=== PATIENT | male | born 1960 | race Hispanic/Latino ===

== ENCOUNTER 2021-02-16 11:10 | Inpatient (IN) | payer OTHER, SELFPAY ==
[~2021-02-16] VITALS: Ht 182.9 cm; Wt 89.8 kg
[2021-02-16 11:58] LABS: ABG BASE EXCESS 0.4 mmol/L (-2.0-3.0); ABG HCO3 23.1 mmol/L (21.0-28.0); ABG OXYGEN SATURATION 81.5 % (95.0-99.0); ABG PCO2 32 mmHg (35-48)
[2021-02-16 12:26] LABS: BASOPHILS % (AUTO) 0.2 % (0.0-5.0); LYMPHOCYTES % (AUTO) 6.9 % (21.0-51.0); MEAN CORPUSCULAR HEMOGLOBIN 28.5 pg (27.0-33.0); MEAN CORPUSCULAR HGB CONC 33.3 g/dL (32.0-36.0); MEAN CORPUSCULAR VOLUME 85.4 fL (79-99); MONOCYTES % (AUTO) 5.5 % (3.0-13.0); NEUTROPHILS % (AUTO) 86.1 % (40.0-77.0); PLATELET COUNT (AUTO) 170 K/uL (130-400); RED BLOOD CELL COUNT(AUTO) 5.27 MIL/uL (4.50-6.20); RED CELL DISTRIBUTION WIDTH 12.5 % (11.0-15.5); WHITE BLOOD COUNT (AUTO) 6.2 K/uL (4.8-10.8)
[2021-02-16 12:35] LABS: CARBON DIOXIDE 29 mmol/L (21-32); CHLORIDE 100 mmol/L (101-111); CREATININE 1.2 mg/dL (0.5-1.5); GLOMERULAR FILTR. RATE CALC 66 mL/min (>60); GLUCOSE,RANDOM 155 mg/dL (70-105); POTASSIUM 4.2 mmol/L (3.5-5.1); SODIUM SERUM 134 mmol/L (136-145); UREA NITROGEN, BLOOD 14 mg/dL (7-18)
[2021-02-16 12:48] LABS: ALANINE AMINOTRANSFERASE 133 U/L (12-78); ASPARTATE AMINOTRANSFERASE 99 U/L (10-37); BILIRUBIN,TOTAL 1.3 mg/dL (0.2-1.0); CREATINE KINASE, TOTAL 212 U/L (21-232); MYOGLOBIN 58 ng/mL (10-92); TOTAL PROTEIN, SERUM 7.4 g/dL (6.0-8.3); TROPONIN I < 0.04 ng/mL (0.00-0.06)
[2021-02-16 12:56] LABS: B-TYPE NATRIURETIC PEPTIDE 35 pg/mL (0-100)
[2021-02-16 13:30] VITALS: BP 133/66
[2021-02-16] MEDS ORDERED: GLUCAGON 1MG KIT 1 MG ML IM PRN (16:30)
[2021-02-16] MEDS ORDERED: LIDOCAINE HCL-MPF 1% 2ML VIAL IV PRN ×2 (16:30)
[2021-02-16] MEDS ORDERED: CEFTRIAXONE 2GM VIAL IVP ONE (16:30)
[2021-02-16] MEDS ORDERED: SOLU-MEDROL 125MG VIAL IVP ONE (16:30)
[2021-02-16] MEDS ORDERED: POTASSIUM CHLORIDE 20MEQ/100ML 100 ML IV PRN ×2 (16:30)
[2021-02-16] MEDS ORDERED: KCL 20 MEQ ERTAB PO PRN (16:30)
[2021-02-16] MEDS ORDERED: POTASSIUM CHLORIDE 10% ELIXIR 20 MEQ/15 ML UDCUP PO PRN (16:30)
[2021-02-16] MEDS ORDERED: ONDANSETRON 4MG INJ IVP PRN (16:30)
[2021-02-16] MEDS ORDERED: MAGNESIUM 2GM PREMIX 50ML 50 ML IV PRN (16:30)
[2021-02-16] MEDS ORDERED: DEXTROSE 50%-WATER 50 ML DISP.SYRIN IV PRN (16:30)
[2021-02-16] MEDS: INSULIN HUMULIN R 100 UNIT/ML 3ML SQ SCH ×2 (16:30→21:00)
[2021-02-16] MEDS ORDERED: CEFTRIAXONE 2GM VIAL ONE (18:10)
[2021-02-16] MEDS ORDERED: 0.9%NACL 50ML 50 ML IV ONE (18:11)
[2021-02-16] MEDS: SOLU-MEDROL 125MG VIAL IVP SCH (18:29)
[2021-02-16] MEDS: HEPARIN 5,000 UNIT VIAL SQ SCH (18:30)
[2021-02-16 18:31] VITALS: BP 133/71
[2021-02-16] MEDS: ACETAMINOPHEN 325 MG TAB PO PRN (18:43)
[2021-02-16] MEDS: FAMOTIDINE 20MG VIAL IV SCH (21:00)
[2021-02-16] MEDS ORDERED: PHARMACY COMMUNICATION**REMDESIVIR MISC SCH (22:00)
[2021-02-17] VITALS (7 sets, daily range): BP systolic 124–138; BP diastolic 64–86
[2021-02-17] MEDS: SOLU-MEDROL 125MG VIAL IVP SCH ×3 (01:55→16:32)
[2021-02-17] MEDS: HEPARIN 5,000 UNIT VIAL SQ SCH ×2 (05:50→16:32)
[2021-02-17 06:38] LABS: HEMATOCRIT 42.6 % (42-54); MEAN CORPUSCULAR HEMOGLOBIN 28.5 pg (27.0-33.0); MEAN CORPUSCULAR HGB CONC 33.1 g/dL (32.0-36.0); MEAN CORPUSCULAR VOLUME 86.1 fL (79-99); RED BLOOD CELL COUNT(AUTO) 4.95 MIL/uL (4.50-6.20); RED CELL DISTRIBUTION WIDTH 12.6 % (11.0-15.5); WHITE BLOOD COUNT (AUTO) 3.9 K/uL (4.8-10.8)
[2021-02-17 06:53] LABS: ALBUMIN 2.5 g/dL (3.5-5.0); BILIRUBIN,TOTAL 0.7 mg/dL (0.2-1.0); CREATININE 1.2 mg/dL (0.5-1.5); POTASSIUM 4.5 mmol/L (3.5-5.1); TOTAL PROTEIN, SERUM 6.7 g/dL (6.0-8.3)
[2021-02-17 07:28] LABS: ABG BASE EXCESS 0.9 mmol/L (-2.0-3.0); ABG HCO3 24.4 mmol/L (21.0-28.0); ABG OXYGEN SATURATION 91.1 % (95.0-99.0); ABG PCO2 36 mmHg (35-48)
[2021-02-17 07:40] LABS: CRP QUANTITATIVE 174.7 mg/L (0.00-9.0)
[2021-02-17] MEDS: FAMOTIDINE 20MG VIAL IV SCH ×2 (08:51→21:56)
[2021-02-17] MEDS: INSULIN HUMULIN R 100 UNIT/ML 3ML SQ SCH ×4 (08:51→21:56)
[2021-02-17] MEDS: [UNRECOGNIZED DRUG - REMARK] MISC SCH ×6 (18:00→23:00)
[2021-02-17] MEDS ORDERED: INSULIN GLARGINE 100 UNITS/ML 10 ML VIAL SQ SCH ×2 (21:00)
[2021-02-18] MEDS: [UNRECOGNIZED DRUG - REMARK] MISC SCH
[2021-02-18] MEDS: SOLU-MEDROL 125MG VIAL IVP SCH ×3 (01:44→16:50)
[2021-02-18] MEDS: ACETAMINOPHEN 325 MG TAB PO PRN (01:44)
[2021-02-18 04:06] VITALS: BP 132/67
[2021-02-18 05:58] LABS: HEMATOCRIT 42.1 % (42-54); MEAN CORPUSCULAR HEMOGLOBIN 28.2 pg (27.0-33.0); MEAN CORPUSCULAR HGB CONC 33.3 g/dL (32.0-36.0); MEAN CORPUSCULAR VOLUME 84.7 fL (79-99); RED BLOOD CELL COUNT(AUTO) 4.97 MIL/uL (4.50-6.20); RED CELL DISTRIBUTION WIDTH 12.3 % (11.0-15.5); WHITE BLOOD COUNT (AUTO) 8.6 K/uL (4.8-10.8)
[2021-02-18] MEDS: HEPARIN 5,000 UNIT VIAL SQ SCH ×2 (06:09→16:50)
[2021-02-18 06:14] LABS: ALBUMIN 2.6 g/dL (3.5-5.0); BILIRUBIN,TOTAL 0.7 mg/dL (0.2-1.0); CREATININE 1.5 mg/dL (0.5-1.5); CRP QUANTITATIVE 62.9 mg/L (0.00-9.0); POTASSIUM 4.5 mmol/L (3.5-5.1); TOTAL PROTEIN, SERUM 6.8 g/dL (6.0-8.3)
[2021-02-18] MEDS ORDERED: REMDESIVIR (EUA) 520 200 MG in 0.9% NACL 250ML 250 ML IV ONE (07:00)
[2021-02-18] MEDS ORDERED: COMPOUND IV REFRIGERATED 1 EACH IVSOLN MISC PRN (07:00)
[2021-02-18 08:00] VITALS: BP 135/68
[2021-02-18] MEDS: FAMOTIDINE 20MG VIAL IV SCH ×2 (08:03→21:39)
[2021-02-18] MEDS: INSULIN HUMULIN R 100 UNIT/ML 3ML SQ SCH ×4 (08:41→21:57)
[2021-02-18] MEDS ORDERED: ALBUTEROL INHALER 90MCG/INH IH ONE (08:43)
[2021-02-18] MEDS: ALBUTEROL INHALER 90MCG/INH IH SCH ×2 (08:45→13:56)
[2021-02-18] MEDS ORDERED: BUDESONIDE 0.5 MG/2 ML INH IH SCH (18:00)
[2021-02-18 20:00] VITALS: BP 144/73
[2021-02-18] MEDS: INSULIN GLARGINE 100 UNITS/ML 10 ML VIAL SQ SCH (21:39)
[2021-02-19] VITALS (8 sets, daily range): BP systolic 128–171; BP diastolic 56–83
[2021-02-19] MEDS: SOLU-MEDROL 125MG VIAL IVP SCH ×3 (00:44→21:12)
[2021-02-19 05:23] LABS: HEMATOCRIT 38.3 % (42-54); MEAN CORPUSCULAR HEMOGLOBIN 28.2 pg (27.0-33.0); MEAN CORPUSCULAR HGB CONC 33.4 g/dL (32.0-36.0); MEAN CORPUSCULAR VOLUME 84.4 fL (79-99); RED BLOOD CELL COUNT(AUTO) 4.54 MIL/uL (4.50-6.20); RED CELL DISTRIBUTION WIDTH 12.1 % (11.0-15.5); WHITE BLOOD COUNT (AUTO) 11.7 K/uL (4.8-10.8)
[2021-02-19] MEDS: BENZONATATE 100 MG CAPSULE PO PRN ×3 (05:25→21:31)
[2021-02-19] MEDS: HEPARIN 5,000 UNIT VIAL SQ SCH ×2 (05:26→17:09)
[2021-02-19 05:42] LABS: ALBUMIN 2.6 g/dL (3.5-5.0); BILIRUBIN,DIRECT 0.3 mg/dL (0.0-0.3); BILIRUBIN,TOTAL 0.8 mg/dL (0.2-1.0); CREATININE 1.2 mg/dL (0.5-1.5); CRP QUANTITATIVE 23.8 mg/L (0.00-9.0); POTASSIUM 4.2 mmol/L (3.5-5.1); TOTAL PROTEIN, SERUM 5.8 g/dL (6.0-8.3)
[2021-02-19] MEDS: [UNRECOGNIZED DRUG - REMARK] MISC SCH (06:00)
[2021-02-19] MEDS: REMDESIVIR LABS MISC SCH (06:00)
[2021-02-19] MEDS: INSULIN HUMULIN R 100 UNIT/ML 3ML SQ SCH ×4 (06:15→21:16)
[2021-02-19 07:03] LABS: ABG BASE EXCESS 3.9 mmol/L (-2.0-3.0); ABG HCO3 27.3 mmol/L (21.0-28.0); ABG PCO2 37 mmHg (35-48)
[2021-02-19] MEDS: FAMOTIDINE 20MG VIAL IV SCH ×2 (08:34→21:12)
[2021-02-19] MEDS: ACETAMINOPHEN 325 MG TAB PO PRN ×2 (11:25→17:49)
[2021-02-19] MEDS: DIAZEPAM 5 MG TABLET PO PRN ×2 (11:26→21:31)
[2021-02-19] MEDS: REMDESIVIR (EUA) 520 100 MG in 0.9% NACL 250ML 250 ML IV SCH (13:11)
[2021-02-19] MEDS: INSULIN GLARGINE 100 UNITS/ML 10 ML VIAL SQ SCH (21:15)
[2021-02-20 03:26] VITALS: BP 142/69
[2021-02-20] MEDS: HEPARIN 5,000 UNIT VIAL SQ SCH ×2 (04:31→17:12)
[2021-02-20 04:37] LABS: BASOPHILS % (AUTO) 0.3 % (0.0-5.0); HEMATOCRIT 40.2 % (42-54); LYMPHOCYTES % (AUTO) 2.5 % (21.0-51.0); MEAN CORPUSCULAR HEMOGLOBIN 28.5 pg (27.0-33.0); MEAN CORPUSCULAR HGB CONC 33.8 g/dL (32.0-36.0); MEAN CORPUSCULAR VOLUME 84.3 fL (79-99); MONOCYTES % (AUTO) 3.6 % (3.0-13.0); NEUTROPHILS % (AUTO) 91.1 % (40.0-77.0); PLATELET COUNT (AUTO) 313 K/uL (130-400); RED BLOOD CELL COUNT(AUTO) 4.77 MIL/uL (4.50-6.20); RED CELL DISTRIBUTION WIDTH 12.1 % (11.0-15.5); WHITE BLOOD COUNT (AUTO) 15.3 K/uL (4.8-10.8)
[2021-02-20 04:50] LABS: CREATININE 1.2 mg/dL (0.5-1.5); MAGNESIUM 2.1 mg/dL (1.80-2.40); PHOSPHORUS 3.7 mg/dL (2.5-4.9)
[2021-02-20] MEDS: INSULIN HUMULIN R 100 UNIT/ML 3ML SQ SCH ×4 (06:32→20:02)
[2021-02-20 07:36] LABS: ALBUMIN 2.6 g/dL (3.5-5.0); BILIRUBIN,TOTAL 0.9 mg/dL (0.2-1.0); TOTAL PROTEIN, SERUM 6.5 g/dL (6.0-8.3)
[2021-02-20 07:45] LABS: LYMPHOCYTES % (MANUAL) 2 % (22-44); MONOCYTES % (MANUAL) 4 % (2-9); SEGMENTED NEUTROPHILS % 94 % (40-70)
[2021-02-20 07:50] LABS: PLATELET MORPHOLOGY COMMENT ADEQUATE
[2021-02-20] MEDS: FAMOTIDINE 20MG VIAL IV SCH ×2 (08:52→20:19)
[2021-02-20] MEDS: BENZONATATE 100 MG CAPSULE PO PRN ×2 (08:52→20:18)
[2021-02-20] MEDS: SOLU-MEDROL 125MG VIAL IVP SCH (08:52)
[2021-02-20] MEDS: ACETAMINOPHEN 325 MG TAB PO PRN ×3 (08:53→20:27)
[2021-02-20 09:33] VITALS: BP 131/60
[2021-02-20] MEDS ORDERED: NACL NASAL SPRAY 120 SPRAY/BOTTLE NS PRN (12:30)
[2021-02-20 12:43] VITALS: BP 153/71
[2021-02-20] MEDS: REMDESIVIR (EUA) 520 100 MG in 0.9% NACL 250ML 250 ML IV SCH (13:28)
[2021-02-20] MEDS: SOLU-MEDROL 40MG VIAL IVP SCH ×2 (14:30→20:19)
[2021-02-20] MEDS ORDERED: SOLU-MEDROL 40MG VIAL IVP SCH (14:30)
[2021-02-20] MEDS: GUAIFENESIN-DM 200/20 MG 10 ML PO PRN ×2 (15:51→20:18)
[2021-02-20 16:28] VITALS: BP 144/59
[2021-02-20 19:58] VITALS: BP 147/70
[2021-02-20] MEDS: GUAIFENESIN 600 MG TABLET.ER PO SCH (20:18)
[2021-02-20] MEDS: DIAZEPAM 5 MG TABLET PO PRN (20:18)
[2021-02-20] MEDS: INSULIN GLARGINE 100 UNITS/ML 10 ML VIAL SQ SCH (21:28)
[2021-02-20 23:34] VITALS: BP 136/53
[2021-02-21] MEDS: GUAIFENESIN-DM 200/20 MG 10 ML PO PRN (01:34)
[2021-02-21] MEDS: ACETAMINOPHEN 325 MG TAB PO PRN ×3 (01:34→20:41)
[2021-02-21] MEDS: SOLU-MEDROL 40MG VIAL IVP SCH ×2 (01:35→08:58)
[2021-02-21 03:45] VITALS: BP 106/44
[2021-02-21] MEDS: HEPARIN 5,000 UNIT VIAL SQ SCH (04:00)
[2021-02-21 04:59] LABS: HEMATOCRIT 38.4 % (42-54); MEAN CORPUSCULAR HEMOGLOBIN 28.6 pg (27.0-33.0); MEAN CORPUSCULAR HGB CONC 34.1 g/dL (32.0-36.0); MEAN CORPUSCULAR VOLUME 83.8 fL (79-99); NUCLEATED RED BLOOD CELLS 0.1 % (0.0-0.19); RED BLOOD CELL COUNT(AUTO) 4.58 MIL/uL (4.50-6.20); RED CELL DISTRIBUTION WIDTH 12.2 % (11.0-15.5); WHITE BLOOD COUNT (AUTO) 15.9 K/uL (4.8-10.8)
[2021-02-21 05:10] LABS: CREATININE 1.2 mg/dL (0.5-1.5); CRP QUANTITATIVE 63.8 mg/L (0.00-9.0); POTASSIUM 4.2 mmol/L (3.5-5.1)
[2021-02-21] MEDS: INSULIN HUMULIN R 100 UNIT/ML 3ML SQ SCH ×4 (06:15→20:30)
[2021-02-21 06:22] LABS: ALBUMIN 2.2 g/dL (3.5-5.0); BILIRUBIN,DIRECT 0.3 mg/dL (0.0-0.3); TOTAL PROTEIN, SERUM 5.7 g/dL (6.0-8.3)
[2021-02-21 08:39] VITALS: BP 136/55
[2021-02-21] MEDS: FAMOTIDINE 20MG VIAL IV SCH ×2 (08:58→20:13)
[2021-02-21] MEDS: GUAIFENESIN 600 MG TABLET.ER PO SCH ×2 (08:58→20:12)
[2021-02-21] MEDS: BENZONATATE 100 MG CAPSULE PO PRN ×2 (08:58→20:13)
[2021-02-21] MEDS: DIAZEPAM 5 MG TABLET PO PRN ×2 (08:59→20:13)
[2021-02-21 12:00] VITALS: BP 142/64
[2021-02-21] MEDS ORDERED: PHARMACY COMMUNICATION**TOCI MISC SCH (12:05)
[2021-02-21 12:08] LABS: ABG BASE EXCESS 1.1 mmol/L (-2.0-3.0); ABG HCO3 24.3 mmol/L (21.0-28.0); ABG OXYGEN SATURATION 94.6 % (95.0-99.0); ABG PCO2 34 mmHg (35-48)
[2021-02-21 12:31] LABS: ALBUMIN 2.3 g/dL (3.5-5.0); BILIRUBIN,DIRECT 0.3 mg/dL (0.0-0.3); BILIRUBIN,TOTAL 0.9 mg/dL (0.2-1.0)
[2021-02-21] MEDS: REMDESIVIR (EUA) 520 100 MG in 0.9% NACL 250ML 250 ML IV SCH (13:07)
[2021-02-21] MEDS ORDERED: IOHEXOL-350 75 ML VIAL IV ONE (15:37)
[2021-02-21 16:00] VITALS: BP 141/85
[2021-02-21] MEDS ORDERED: [UNRECOGNIZED DRUG - OTHER] MISC SCH (16:37)
[2021-02-21] MEDS ORDERED: NYSTATIN 100000 UNIT/ML 5ML UDCUP ONE (19:56)
[2021-02-21] MEDS: NYSTATIN 100000 UNIT/ML 5ML UDCUP PO SCH (20:13)
[2021-02-21] MEDS: ENOXAPARIN SODIUM 100 MG/1 ML SQ SCH (20:14)
[2021-02-21] MEDS: INSULIN GLARGINE 100 UNITS/ML 10 ML VIAL SQ SCH (20:26)
[2021-02-21] MEDS: BARICITINIB (EUA) 2 MG TABLET PO SCH (20:41)
[2021-02-21] MEDS ORDERED: ENOXAPARIN SODIUM 1 MG/KG SQ SCH (21:00)
[2021-02-21 23:23] VITALS: BP 158/64
[2021-02-22 04:25] VITALS: BP 155/68
[2021-02-22 04:39] LABS: BASOPHILS % (AUTO) 0.3 % (0.0-5.0); EOSINOPHILS % (AUTO) 0.1 % (0.0-8.0); HEMATOCRIT 41.7 % (42-54); LYMPHOCYTES % (AUTO) 3.6 % (21.0-51.0); MEAN CORPUSCULAR HEMOGLOBIN 28.3 pg (27.0-33.0); MEAN CORPUSCULAR HGB CONC 33.8 g/dL (32.0-36.0); MEAN CORPUSCULAR VOLUME 83.6 fL (79-99); MONOCYTES % (AUTO) 1.8 % (3.0-13.0); NEUTROPHILS % (AUTO) 88.9 % (40.0-77.0); NUCLEATED RED BLOOD CELLS 0.2 % (0.0-0.19); PLATELET COUNT (AUTO) 292 K/uL (130-400); RED BLOOD CELL COUNT(AUTO) 4.99 MIL/uL (4.50-6.20); RED CELL DISTRIBUTION WIDTH 12.3 % (11.0-15.5)
[2021-02-22 04:55] LABS: HEMOGLOBIN A1C 6.6 % (4.0-6.0)
[2021-02-22 05:00] LABS: ALBUMIN 2.5 g/dL (3.5-5.0); BILIRUBIN,DIRECT 0.3 mg/dL (0.0-0.3); CREATININE 1.3 mg/dL (0.5-1.5); CRP QUANTITATIVE 84.2 mg/L (0.00-9.0); POTASSIUM 4.5 mmol/L (3.5-5.1); TOTAL PROTEIN, SERUM 6.3 g/dL (6.0-8.3)
[2021-02-22] MEDS: REMDESIVIR LABS MISC SCH (05:37)
[2021-02-22 05:39] LABS: ERYTHROCYTE SEDIMENTATION RATE 40 MM/HR (0-20)
[2021-02-22] MEDS: INSULIN HUMULIN R 100 UNIT/ML 3ML SQ SCH ×4 (05:39→20:01)
[2021-02-22 07:51] VITALS: BP 131/81
[2021-02-22 07:52] LABS: ABG BASE EXCESS 2.2 mmol/L (-2.0-3.0); ABG HCO3 24.6 mmol/L (21.0-28.0); ABG PCO2 32 mmHg (35-48)
[2021-02-22] MEDS: GUAIFENESIN 600 MG TABLET.ER PO SCH ×2 (08:10→20:01)
[2021-02-22] MEDS: FLUCONAZOLE 200 MG/NS 100 ML 100 ML IV SCH (08:10)
[2021-02-22] MEDS: NYSTATIN 100000 UNIT/ML 5ML UDCUP PO SCH ×4 (08:10→20:04)
[2021-02-22] MEDS: ENOXAPARIN SODIUM 100 MG/1 ML SQ SCH ×2 (08:10→20:01)
[2021-02-22] MEDS: FAMOTIDINE 20MG VIAL IV SCH ×2 (08:10→20:01)
[2021-02-22] MEDS: DIAZEPAM 5 MG TABLET PO PRN (08:10)
[2021-02-22] MEDS: ACETAMINOPHEN 325 MG TAB PO PRN ×2 (08:23→20:04)
[2021-02-22] MEDS: BARICITINIB (EUA) 2 MG TABLET PO SCH (08:43)
[2021-02-22] MEDS ORDERED: COMPOUND PO MISCELLANEOUS 1 EACH MISC MISC PRN (09:00)
[2021-02-22] MEDS ORDERED: PHARMACY COMMUNICATION MISC SCH ×2 (09:00)
[2021-02-22 12:06] VITALS: BP 114/73
[2021-02-22] MEDS: REMDESIVIR (EUA) 520 100 MG in 0.9% NACL 250ML 250 ML IV SCH (12:41)
[2021-02-22] MEDS: MAG/AL/SIMETH 30 ML+LIDO2% VISC+DIPHEN 75MG 30ML PO PRN ×3 (12:42)
[2021-02-22 16:34] VITALS: BP 132/78
[2021-02-22] MEDS: INSULIN GLARGINE 100 UNITS/ML 10 ML VIAL SQ SCH (20:06)
[2021-02-22 20:12] VITALS: BP 155/70
[2021-02-23] VITALS (7 sets, daily range): BP systolic 120–147; BP diastolic 67–88
[2021-02-23 05:17] LABS: BASOPHILS % (AUTO) 0.2 % (0.0-5.0); EOSINOPHILS % (AUTO) 0.7 % (0.0-8.0); HEMATOCRIT 40.9 % (42-54); LYMPHOCYTES % (AUTO) 2.3 % (21.0-51.0); MEAN CORPUSCULAR HEMOGLOBIN 28.4 pg (27.0-33.0); MEAN CORPUSCULAR HGB CONC 32.5 g/dL (32.0-36.0); MEAN CORPUSCULAR VOLUME 87.2 fL (79-99); NEUTROPHILS % (AUTO) 91.8 % (40.0-77.0); PLATELET COUNT (AUTO) 254 K/uL (130-400); RED BLOOD CELL COUNT(AUTO) 4.69 MIL/uL (4.50-6.20); RED CELL DISTRIBUTION WIDTH 12.8 % (11.0-15.5); WHITE BLOOD COUNT (AUTO) 16.2 K/uL (4.8-10.8)
[2021-02-23 05:37] LABS: ALBUMIN 2.1 g/dL (3.5-5.0); BILIRUBIN,TOTAL 1.1 mg/dL (0.2-1.0); CREATININE 1.1 mg/dL (0.5-1.5); POTASSIUM 3.7 mmol/L (3.5-5.1)
[2021-02-23] MEDS: INSULIN HUMULIN R 100 UNIT/ML 3ML SQ SCH ×5 (07:30→21:46)
[2021-02-23] MEDS: ENOXAPARIN SODIUM 40 MG/0.4 ML SYRINGE SQ SCH ×2 (08:26→21:39)
[2021-02-23] MEDS: FAMOTIDINE 20MG VIAL IV SCH ×2 (08:26→21:35)
[2021-02-23] MEDS: BARICITINIB (EUA) 2 MG TABLET PO SCH (08:27)
[2021-02-23] MEDS: GUAIFENESIN 600 MG TABLET.ER PO SCH ×2 (08:27→21:34)
[2021-02-23] MEDS: NYSTATIN 100000 UNIT/ML 5ML UDCUP PO SCH ×4 (08:27→21:34)
[2021-02-23] MEDS: FLUCONAZOLE 200 MG/NS 100 ML 100 ML IV SCH (08:27)
[2021-02-23] MEDS: DEXAMETHASONE SOD PHOSPHATE 4 MG/ML 1ML VIAL IVP SCH (08:27)
[2021-02-23] MEDS: MAG/AL/SIMETH 30 ML+LIDO2% VISC+DIPHEN 75MG 30ML PO PRN ×9 (08:28→17:40)
[2021-02-23] MEDS: DIAZEPAM 5 MG TABLET PO PRN ×2 (08:35→17:36)
[2021-02-23] MEDS ORDERED: TOCILIZUMAB 400MG VIAL 800 MG in 0.9%NACL 100ML 100 ML IV SCH (10:30)
[2021-02-23] MEDS: GUAIFENESIN-DM 200/20 MG 10 ML PO PRN (11:01)
[2021-02-23 11:03] LABS: APPEARANCE,URINE Clear (CLEAR); BILIRUBIN,URINE Small (NEGATIVE); COLOR,URINE Dark Yellow (YELLOW); GLUCOSE, URINE (UA) Negative (NEGATIVE); KETONES,URINE Negative (NEGATIVE); LEUKOCYTE ESTERASE ,URINE Negative (NEGATIVE); NITRATE,URINE Negative (NEGATIVE); OCCULT BLOOD,URINE Nonhemolyzed Trace (NEGATIVE); PROTEIN,URINE POS 1+ mg/dL (NEGATIVE)
[2021-02-23 11:18] LABS: BACTERIA,URINE Rare /HPF (None Seen); SQUAMOUS EPITHELIAL CELL,UR Rare /HPF (0-2); WBC,URINE 0-1 /HPF (0-1)
[2021-02-23] MEDS ORDERED: COMPOUND IV REFRIGERATED 1 EACH IVSOLN MISC PRN (13:00)
[2021-02-23] MEDS: REMDESIVIR (EUA) 520 100 MG in 0.9% NACL 250ML 250 ML IV SCH (13:56)
[2021-02-23] MEDS: BENZONATATE 100 MG CAPSULE PO PRN (17:36)
[2021-02-23] MEDS: ACETAMINOPHEN 325 MG TAB PO PRN (17:36)
[2021-02-23] MEDS: INSULIN GLARGINE 100 UNITS/ML 10 ML VIAL SQ SCH (21:00)
[2021-02-24 04:00] VITALS: BP 132/81
[2021-02-24 04:30] LABS: BASOPHILS % (AUTO) 0.1 % (0.0-5.0); EOSINOPHILS % (AUTO) 0.1 % (0.0-8.0); HEMATOCRIT 40.6 % (42-54); LYMPHOCYTES % (AUTO) 1.7 % (21.0-51.0); MEAN CORPUSCULAR HEMOGLOBIN 28.3 pg (27.0-33.0); MEAN CORPUSCULAR HGB CONC 32.8 g/dL (32.0-36.0); MEAN CORPUSCULAR VOLUME 86.4 fL (79-99); MONOCYTES % (AUTO) 2.8 % (3.0-13.0); PLATELET COUNT (AUTO) 244 K/uL (130-400); RED CELL DISTRIBUTION WIDTH 12.4 % (11.0-15.5); WHITE BLOOD COUNT (AUTO) 16.3 K/uL (4.8-10.8)
[2021-02-24 04:48] LABS: ALBUMIN 2.2 g/dL (3.5-5.0); BILIRUBIN,TOTAL 0.9 mg/dL (0.2-1.0); CREATININE 0.9 mg/dL (0.5-1.5); MAGNESIUM 2.1 mg/dL (1.80-2.40); POTASSIUM 4.2 mmol/L (3.5-5.1); TOTAL PROTEIN, SERUM 6.3 g/dL (6.0-8.3)
[2021-02-24 07:30] VITALS: BP 139/82
[2021-02-24] MEDS: INSULIN HUMULIN R 100 UNIT/ML 3ML SQ SCH ×4 (07:30→22:23)
[2021-02-24] MEDS: GUAIFENESIN 600 MG TABLET.ER PO SCH ×2 (09:25→20:31)
[2021-02-24] MEDS: ACETAMINOPHEN 325 MG TAB PO PRN (09:25)
[2021-02-24] MEDS: ENOXAPARIN SODIUM 40 MG/0.4 ML SYRINGE SQ SCH ×2 (09:27→20:32)
[2021-02-24] MEDS: FAMOTIDINE 20MG VIAL IV SCH ×2 (09:27→20:31)
[2021-02-24] MEDS: DEXAMETHASONE SOD PHOSPHATE 4 MG/ML 1ML VIAL IVP SCH (09:27)
[2021-02-24] MEDS: FLUCONAZOLE 200 MG/NS 100 ML 100 ML IV SCH (09:29)
[2021-02-24] MEDS: NYSTATIN 100000 UNIT/ML 5ML UDCUP PO SCH ×4 (09:29→20:31)
[2021-02-24] MEDS: [UNRECOGNIZED DRUG - REMARK] MISC SCH ×4 (11:32→11:48)
[2021-02-24 12:21] VITALS: BP 132/86
[2021-02-24] MEDS: BUSPIRONE HCL 5 MG TABLET PO SCH ×2 (13:25→20:31)
[2021-02-24] MEDS: REMDESIVIR (EUA) 520 100 MG in 0.9% NACL 250ML 250 ML IV SCH (13:25)
[2021-02-24 16:32] VITALS: BP 120/69
[2021-02-24 20:25] VITALS: BP 142/71
[2021-02-24] MEDS: INSULIN GLARGINE 100 UNITS/ML 10 ML VIAL SQ SCH (22:21)
[2021-02-25] VITALS (7 sets, daily range): BP systolic 100–162; BP diastolic 58–102
[2021-02-25] MEDS: INSULIN HUMULIN R 100 UNIT/ML 3ML SQ SCH ×4 (07:30→23:29)
[2021-02-25] MEDS: NYSTATIN 100000 UNIT/ML 5ML UDCUP PO SCH ×4 (09:32→20:49)
[2021-02-25] MEDS: GUAIFENESIN 600 MG TABLET.ER PO SCH ×2 (09:32→20:49)
[2021-02-25] MEDS: BUSPIRONE HCL 5 MG TABLET PO SCH ×3 (09:32→20:49)
[2021-02-25] MEDS: DEXAMETHASONE SOD PHOSPHATE 4 MG/ML 1ML VIAL IVP SCH (09:32)
[2021-02-25] MEDS: FAMOTIDINE 20MG VIAL IV SCH ×2 (09:33→21:15)
[2021-02-25] MEDS: ENOXAPARIN SODIUM 40 MG/0.4 ML SYRINGE SQ SCH ×2 (09:33→20:49)
[2021-02-25] MEDS: FLUCONAZOLE 200 MG/NS 100 ML 100 ML IV SCH (09:33)
[2021-02-25] MEDS: FUROSEMIDE 20MG VIAL IV SCH ×2 (11:49→21:16)
[2021-02-25 12:17] LABS: ALBUMIN 2.4 g/dL (3.5-5.0); BILIRUBIN,DIRECT 0.1 mg/dL (0.0-0.3); BILIRUBIN,TOTAL 0.7 mg/dL (0.2-1.0); TOTAL PROTEIN, SERUM 6.4 g/dL (6.0-8.3)
[2021-02-25] MEDS: REMDESIVIR (EUA) 520 100 MG in 0.9% NACL 250ML 250 ML IV SCH (13:41)
[2021-02-25] MEDS: INSULIN GLARGINE 100 UNITS/ML 10 ML VIAL SQ SCH (23:30)
[2021-02-26 03:49] VITALS: BP 104/67
[2021-02-26 05:14] LABS: BASOPHILS % (AUTO) 0.1 % (0.0-5.0); EOSINOPHILS % (AUTO) 0.1 % (0.0-8.0); HEMATOCRIT 41.7 % (42-54); MEAN CORPUSCULAR HEMOGLOBIN 28.6 pg (27.0-33.0); MEAN CORPUSCULAR HGB CONC 32.9 g/dL (32.0-36.0); MEAN CORPUSCULAR VOLUME 87.1 fL (79-99); MONOCYTES % (AUTO) 6.4 % (3.0-13.0); NEUTROPHILS % (AUTO) 90.5 % (40.0-77.0); PLATELET COUNT (AUTO) 301 K/uL (130-400); RED BLOOD CELL COUNT(AUTO) 4.79 MIL/uL (4.50-6.20); RED CELL DISTRIBUTION WIDTH 12.8 % (11.0-15.5); WHITE BLOOD COUNT (AUTO) 14.9 K/uL (4.8-10.8)
[2021-02-26 05:32] LABS: ALBUMIN 2.4 g/dL (3.5-5.0); BILIRUBIN,TOTAL 0.9 mg/dL (0.2-1.0); CREATININE 1.2 mg/dL (0.5-1.5); POTASSIUM 4.5 mmol/L (3.5-5.1); TOTAL PROTEIN, SERUM 6.1 g/dL (6.0-8.3)
[2021-02-26] MEDS: INSULIN HUMULIN R 100 UNIT/ML 3ML SQ SCH ×4 (05:50→21:44)
[2021-02-26 08:00] VITALS: BP 102/64
[2021-02-26] MEDS: FLUCONAZOLE 200 MG/NS 100 ML 100 ML IV SCH (09:26)
[2021-02-26] MEDS: ENOXAPARIN SODIUM 40 MG/0.4 ML SYRINGE SQ SCH ×2 (09:26→21:24)
[2021-02-26] MEDS: NYSTATIN 100000 UNIT/ML 5ML UDCUP PO SCH ×4 (09:27→21:24)
[2021-02-26] MEDS: DEXAMETHASONE SOD PHOSPHATE 4 MG/ML 1ML VIAL IVP SCH (09:27)
[2021-02-26] MEDS: BUSPIRONE HCL 5 MG TABLET PO SCH ×3 (09:28→21:24)
[2021-02-26] MEDS: FAMOTIDINE 20MG VIAL IV SCH ×2 (09:35→22:18)
[2021-02-26] MEDS: GUAIFENESIN 600 MG TABLET.ER PO SCH ×2 (09:35→21:24)
[2021-02-26] MEDS: LACTULOSE 20 GM/30 ML UDCUP PO SCH (11:00)
[2021-02-26 12:00] VITALS: BP 99/62
[2021-02-26] MEDS: REMDESIVIR (EUA) 520 100 MG in 0.9% NACL 250ML 250 ML IV SCH (13:56)
[2021-02-26 16:00] VITALS: BP 110/63
[2021-02-26 20:32] VITALS: BP 104/57
[2021-02-26] MEDS: INSULIN GLARGINE 100 UNITS/ML 10 ML VIAL SQ SCH (21:43)
[2021-02-26 23:33] VITALS: BP 119/68
[2021-02-27 03:52] VITALS: BP 121/64
[2021-02-27] MEDS: INSULIN HUMULIN R 100 UNIT/ML 3ML SQ SCH ×4 (06:02→21:07)
[2021-02-27 07:47] VITALS: BP 112/73
[2021-02-27] MEDS: FLUCONAZOLE 200 MG/NS 100 ML 100 ML IV SCH (10:24)
[2021-02-27] MEDS: ENOXAPARIN SODIUM 40 MG/0.4 ML SYRINGE SQ SCH ×2 (10:24→21:05)
[2021-02-27] MEDS: BUSPIRONE HCL 5 MG TABLET PO SCH ×3 (10:25→21:04)
[2021-02-27] MEDS: FAMOTIDINE 20MG VIAL IV SCH (10:25)
[2021-02-27] MEDS: NYSTATIN 100000 UNIT/ML 5ML UDCUP PO SCH ×4 (10:25→21:04)
[2021-02-27] MEDS: GUAIFENESIN 600 MG TABLET.ER PO SCH ×2 (10:25→21:04)
[2021-02-27] MEDS: DEXAMETHASONE SOD PHOSPHATE 4 MG/ML 1ML VIAL IVP SCH (10:25)
[2021-02-27] MEDS: LACTULOSE 20 GM/30 ML UDCUP PO SCH (10:25)
[2021-02-27] MEDS ORDERED: ACETAMINOPHEN 500 MG TABLET PO SCH (11:00)
[2021-02-27] MEDS ORDERED: ASPIRIN 81MG CHEW TAB PO SCH (11:00)
[2021-02-27] MEDS ORDERED: ASPIRIN 81 MG EC TAB PO SCH (11:00)
[2021-02-27 11:48] VITALS: BP 119/78
[2021-02-27] MEDS: REMDESIVIR (EUA) 520 100 MG in 0.9% NACL 250ML 250 ML IV SCH (14:58)
[2021-02-27 16:14] VITALS: BP 109/72
[2021-02-27 19:55] VITALS: BP 119/44
[2021-02-27] MEDS: FAMOTIDINE 20MG TAB PO SCH (21:04)
[2021-02-27] MEDS: INSULIN GLARGINE 100 UNITS/ML 10 ML VIAL SQ SCH (21:08)
[2021-02-28 00:13] VITALS: BP 125/79
[2021-02-28 04:25] VITALS: BP 120/71
[2021-02-28 04:56] LABS: BASOPHILS % (AUTO) 0.1 % (0.0-5.0); EOSINOPHILS % (AUTO) 0.1 % (0.0-8.0); HEMATOCRIT 43.7 % (42-54); MEAN CORPUSCULAR HEMOGLOBIN 28.3 pg (27.0-33.0); MEAN CORPUSCULAR HGB CONC 32.3 g/dL (32.0-36.0); MEAN CORPUSCULAR VOLUME 87.8 fL (79-99); MONOCYTES % (AUTO) 5.7 % (3.0-13.0); NEUTROPHILS % (AUTO) 89.2 % (40.0-77.0); PLATELET COUNT (AUTO) 280 K/uL (130-400); RED BLOOD CELL COUNT(AUTO) 4.98 MIL/uL (4.50-6.20); RED CELL DISTRIBUTION WIDTH 12.6 % (11.0-15.5); WHITE BLOOD COUNT (AUTO) 15.1 K/uL (4.8-10.8)
[2021-02-28 05:12] LABS: ALBUMIN 2.5 g/dL (3.5-5.0); BILIRUBIN,TOTAL 0.8 mg/dL (0.2-1.0); POTASSIUM 4.6 mmol/L (3.5-5.1); TOTAL PROTEIN, SERUM 6.1 g/dL (6.0-8.3)
[2021-02-28] MEDS: INSULIN HUMULIN R 100 UNIT/ML 3ML SQ SCH ×4 (06:22→20:27)
[2021-02-28 07:56] VITALS: BP 124/76
[2021-02-28] MEDS: FAMOTIDINE 20MG TAB PO SCH ×2 (08:30→20:05)
[2021-02-28] MEDS: GUAIFENESIN 600 MG TABLET.ER PO SCH ×2 (08:30→20:05)
[2021-02-28] MEDS: NYSTATIN 100000 UNIT/ML 5ML UDCUP PO SCH ×3 (08:30→17:34)
[2021-02-28] MEDS: FLUCONAZOLE 200 MG/NS 100 ML 100 ML IV SCH (08:30)
[2021-02-28] MEDS: ENOXAPARIN SODIUM 40 MG/0.4 ML SYRINGE SQ SCH ×2 (08:30→20:06)
[2021-02-28] MEDS: BUSPIRONE HCL 5 MG TABLET PO SCH ×3 (08:30→20:11)
[2021-02-28] MEDS: DEXAMETHASONE SOD PHOSPHATE 4 MG/ML 1ML VIAL IVP SCH (08:30)
[2021-02-28] MEDS ORDERED: 0.9%NACL 50ML 50 ML IV ONE ×2 (08:44→14:14)
[2021-02-28] MEDS: LACTULOSE 20 GM/30 ML UDCUP PO SCH (09:00)
[2021-02-28 11:44] VITALS: BP 111/54
[2021-02-28] MEDS: FLUCONAZOLE 100 MG TAB PO SCH (13:49)
[2021-02-28 16:13] VITALS: BP 115/79
[2021-02-28 23:17] VITALS: BP 126/80
[2021-03-01 04:20] VITALS: BP 130/74
[2021-03-01 04:24] LABS: BASOPHILS % (AUTO) 0.1 % (0.0-5.0); EOSINOPHILS % (AUTO) 0.1 % (0.0-8.0); HEMATOCRIT 42.8 % (42-54); LYMPHOCYTES % (AUTO) 3.5 % (21.0-51.0); MEAN CORPUSCULAR HEMOGLOBIN 28.2 pg (27.0-33.0); MEAN CORPUSCULAR HGB CONC 33.4 g/dL (32.0-36.0); MEAN CORPUSCULAR VOLUME 84.4 fL (79-99); MONOCYTES % (AUTO) 6.9 % (3.0-13.0); NEUTROPHILS % (AUTO) 87.9 % (40.0-77.0); PLATELET COUNT (AUTO) 284 K/uL (130-400); RED BLOOD CELL COUNT(AUTO) 5.07 MIL/uL (4.50-6.20); RED CELL DISTRIBUTION WIDTH 12.5 % (11.0-15.5); WHITE BLOOD COUNT (AUTO) 14.5 K/uL (4.8-10.8)
[2021-03-01 04:38] LABS: ALANINE AMINOTRANSFERASE 79 U/L (12-78); ALBUMIN 2.5 g/dL (3.5-5.0); ASPARTATE AMINOTRANSFERASE 14 U/L (10-37); BILIRUBIN,TOTAL 0.8 mg/dL (0.2-1.0); CARBON DIOXIDE 28 mmol/L (21-32); CHLORIDE 100 mmol/L (101-111); GLOMERULAR FILTR. RATE CALC 82 mL/min (>60); GLUCOSE,RANDOM 119 mg/dL (70-105); PHOSPHORUS 3.8 mg/dL (2.5-4.9); POTASSIUM 4.4 mmol/L (3.5-5.1); SODIUM SERUM 136 mmol/L (136-145); TOTAL PROTEIN, SERUM 5.9 g/dL (6.0-8.3); UREA NITROGEN, BLOOD 27 mg/dL (7-18)
[2021-03-01 04:44] LABS: CRP QUANTITATIVE < 2.00 mg/L (0.00-9.0)
[2021-03-01 04:50] LABS: B-TYPE NATRIURETIC PEPTIDE 32 pg/mL (0-100)
[2021-03-01] MEDS: INSULIN HUMULIN R 100 UNIT/ML 3ML SQ SCH ×4 (07:30→21:03)
[2021-03-01 08:12] VITALS: BP 114/70
[2021-03-01] MEDS: GUAIFENESIN 600 MG TABLET.ER PO SCH ×2 (09:20→20:59)
[2021-03-01] MEDS: DEXAMETHASONE SOD PHOSPHATE 4 MG/ML 1ML VIAL IVP SCH (09:20)
[2021-03-01] MEDS: FAMOTIDINE 20MG TAB PO SCH ×2 (09:21→20:59)
[2021-03-01] MEDS: BUSPIRONE HCL 5 MG TABLET PO SCH ×3 (09:21→21:01)
[2021-03-01] MEDS: FLUCONAZOLE 100 MG TAB PO SCH (09:21)
[2021-03-01] MEDS: LACTULOSE 20 GM/30 ML UDCUP PO SCH (09:22)
[2021-03-01] MEDS: ENOXAPARIN SODIUM 40 MG/0.4 ML SYRINGE SQ SCH ×2 (09:23→20:58)
[2021-03-01 11:45] VITALS: BP 126/76
[2021-03-01] MEDS: ACETAMINOPHEN 325 MG TAB PO PRN ×2 (14:28→21:10)
[2021-03-01 15:56] VITALS: BP 143/68
[2021-03-01 19:05] VITALS: BP 115/71
[2021-03-01 23:48] VITALS: BP 107/67
[2021-03-02 03:25] VITALS: BP 110/71
[2021-03-02 04:54] LABS: BASOPHILS % (AUTO) 0.3 % (0.0-5.0); EOSINOPHILS % (AUTO) 0.2 % (0.0-8.0); LYMPHOCYTES % (AUTO) 3.7 % (21.0-51.0); MEAN CORPUSCULAR HGB CONC 32.6 g/dL (32.0-36.0); MEAN CORPUSCULAR VOLUME 85.8 fL (79-99); MONOCYTES % (AUTO) 7.1 % (3.0-13.0); NEUTROPHILS % (AUTO) 86.7 % (40.0-77.0); PLATELET COUNT (AUTO) 300 K/uL (130-400); RED BLOOD CELL COUNT(AUTO) 5.36 MIL/uL (4.50-6.20); RED CELL DISTRIBUTION WIDTH 12.7 % (11.0-15.5); WHITE BLOOD COUNT (AUTO) 15.2 K/uL (4.8-10.8)
[2021-03-02 05:25] LABS: ALANINE AMINOTRANSFERASE 75 U/L (12-78); ALBUMIN 2.9 g/dL (3.5-5.0); ASPARTATE AMINOTRANSFERASE 14 U/L (10-37); BILIRUBIN,TOTAL 0.9 mg/dL (0.2-1.0); CARBON DIOXIDE 30 mmol/L (21-32); CHLORIDE 100 mmol/L (101-111); GLOMERULAR FILTR. RATE CALC 82 mL/min (>60); GLUCOSE,RANDOM 112 mg/dL (70-105); POTASSIUM 4.2 mmol/L (3.5-5.1); SODIUM SERUM 137 mmol/L (136-145); TOTAL PROTEIN, SERUM 6.4 g/dL (6.0-8.3); UREA NITROGEN, BLOOD 31 mg/dL (7-18)
[2021-03-02 05:36] LABS: CRP QUANTITATIVE < 2.00 mg/L (0.00-9.0)
[2021-03-02] MEDS: INSULIN HUMULIN R 100 UNIT/ML 3ML SQ SCH ×4 (05:43→20:15)
[2021-03-02] MEDS: ENOXAPARIN SODIUM 40 MG/0.4 ML SYRINGE SQ SCH ×2 (08:36→20:07)
[2021-03-02] MEDS: FAMOTIDINE 20MG TAB PO SCH ×2 (08:37→20:17)
[2021-03-02] MEDS: GUAIFENESIN 600 MG TABLET.ER PO SCH ×2 (08:37→20:17)
[2021-03-02] MEDS: BUSPIRONE HCL 5 MG TABLET PO SCH ×3 (08:37→20:16)
[2021-03-02] MEDS: DEXAMETHASONE SOD PHOSPHATE 4 MG/ML 1ML VIAL IVP SCH (08:37)
[2021-03-02] MEDS: LACTULOSE 20 GM/30 ML UDCUP PO SCH (08:38)
[2021-03-02] MEDS: ACETAMINOPHEN 325 MG TAB PO PRN ×2 (08:52→20:28)
[2021-03-02 08:56] VITALS: BP 105/65
[2021-03-02] MEDS: FLUCONAZOLE 100 MG TAB PO SCH (12:20)
[2021-03-02 12:23] VITALS: BP 115/66
[2021-03-02 17:26] VITALS: BP 109/64
[2021-03-02 19:38] VITALS: BP 118/68
[2021-03-02] MEDS: ALPRAZOLAM 1 MG TAB PO PRN (20:16)
[2021-03-02 23:04] VITALS: BP 115/70
[2021-03-03 03:17] VITALS: BP 109/72
[2021-03-03] MEDS: INSULIN HUMULIN R 100 UNIT/ML 3ML SQ SCH ×4 (06:45→20:00)
[2021-03-03 08:06] VITALS: BP 108/73
[2021-03-03] MEDS: LACTULOSE 20 GM/30 ML UDCUP PO SCH (10:19)
[2021-03-03] MEDS: ENOXAPARIN SODIUM 40 MG/0.4 ML SYRINGE SQ SCH ×2 (10:19→19:57)
[2021-03-03] MEDS: GUAIFENESIN-DM 200/20 MG 10 ML PO PRN (10:20)
[2021-03-03] MEDS: DEXAMETHASONE SOD PHOSPHATE 4 MG/ML 1ML VIAL IVP SCH (10:20)
[2021-03-03] MEDS: GUAIFENESIN 600 MG TABLET.ER PO SCH ×2 (10:20→19:57)
[2021-03-03] MEDS: BUSPIRONE HCL 5 MG TABLET PO SCH ×3 (10:20→19:59)
[2021-03-03] MEDS: FAMOTIDINE 20MG TAB PO SCH ×2 (10:20→19:57)
[2021-03-03] MEDS: FLUCONAZOLE 100 MG TAB PO SCH (10:20)
[2021-03-03] MEDS: BENZONATATE 100 MG CAPSULE PO PRN (10:21)
[2021-03-03] MEDS: ACETAMINOPHEN 325 MG TAB PO PRN (10:33)
[2021-03-03 12:02] VITALS: BP 121/70
[2021-03-03 16:47] VITALS: BP 119/71
[2021-03-03 19:57] VITALS: BP 109/76
[2021-03-03] MEDS: ALPRAZOLAM 1 MG TAB PO PRN (19:57)
[2021-03-03] MEDS: DOCUSATE SODIUM 100 MG CAP PO SCH (19:57)
[2021-03-03 23:48] VITALS: BP 128/76
[2021-03-04 04:04] VITALS: BP 119/73
[2021-03-04] MEDS ORDERED: 0.9%NACL 1000ML 1,000 ML IV ONE (05:23)
[2021-03-04 05:33] LABS: ALANINE AMINOTRANSFERASE 59 U/L (12-78); ALBUMIN 2.8 g/dL (3.5-5.0); ASPARTATE AMINOTRANSFERASE 16 U/L (10-37); BILIRUBIN,TOTAL 0.8 mg/dL (0.2-1.0); CARBON DIOXIDE 31 mmol/L (21-32); CHLORIDE 104 mmol/L (101-111); CREATININE 1.1 mg/dL (0.5-1.5); GLOMERULAR FILTR. RATE CALC 73 mL/min (>60); GLUCOSE,RANDOM 123 mg/dL (70-105); POTASSIUM 4.9 mmol/L (3.5-5.1); SODIUM SERUM 141 mmol/L (136-145); TOTAL PROTEIN, SERUM 5.8 g/dL (6.0-8.3); UREA NITROGEN, BLOOD 29 mg/dL (7-18)
[2021-03-04 06:07] LABS: CRP QUANTITATIVE < 2.00 mg/L (0.00-9.0)
[2021-03-04] MEDS: INSULIN HUMULIN R 100 UNIT/ML 3ML SQ SCH ×4 (07:30→23:03)
[2021-03-04] MEDS: ENOXAPARIN SODIUM 40 MG/0.4 ML SYRINGE SQ SCH ×2 (08:36→20:51)
[2021-03-04] MEDS: DEXAMETHASONE SOD PHOSPHATE 4 MG/ML 1ML VIAL IVP SCH (08:37)
[2021-03-04] MEDS: ACETAMINOPHEN 325 MG TAB PO PRN (08:38)
[2021-03-04] MEDS: BUSPIRONE HCL 5 MG TABLET PO SCH ×3 (08:38→20:50)
[2021-03-04] MEDS: DOCUSATE SODIUM 100 MG CAP PO SCH ×2 (08:38→20:50)
[2021-03-04] MEDS: FLUCONAZOLE 100 MG TAB PO SCH (08:39)
[2021-03-04] MEDS: FAMOTIDINE 20MG TAB PO SCH ×2 (08:39→20:50)
[2021-03-04] MEDS: GUAIFENESIN 600 MG TABLET.ER PO SCH ×2 (08:39→20:50)
[2021-03-04] MEDS: GUAIFENESIN-DM 200/20 MG 10 ML PO PRN (08:39)
[2021-03-04] MEDS: LACTULOSE 20 GM/30 ML UDCUP PO SCH (08:39)
[2021-03-04 08:40] VITALS: BP 126/80
[2021-03-04 12:31] VITALS: BP 115/73
[2021-03-04 16:30] VITALS: BP 121/78
[2021-03-04 19:53] VITALS: BP 114/69
[2021-03-04 23:21] VITALS: BP 108/70
[2021-03-05 03:55] VITALS: BP 116/72
[2021-03-05] MEDS: INSULIN HUMULIN R 100 UNIT/ML 3ML SQ SCH ×4 (05:59→21:54)
[2021-03-05 07:46] VITALS: BP 146/78
[2021-03-05] MEDS: FLUCONAZOLE 100 MG TAB PO SCH (08:48)
[2021-03-05] MEDS: DEXAMETHASONE SOD PHOSPHATE 4 MG/ML 1ML VIAL IVP SCH (08:48)
[2021-03-05] MEDS: ENOXAPARIN SODIUM 40 MG/0.4 ML SYRINGE SQ SCH ×2 (08:48→20:43)
[2021-03-05] MEDS: FAMOTIDINE 20MG TAB PO SCH ×2 (08:48→20:43)
[2021-03-05] MEDS: LACTULOSE 20 GM/30 ML UDCUP PO SCH (08:49)
[2021-03-05] MEDS: GUAIFENESIN 600 MG TABLET.ER PO SCH ×2 (08:49→20:42)
[2021-03-05] MEDS: DOCUSATE SODIUM 100 MG CAP PO SCH ×2 (08:49→20:42)
[2021-03-05] MEDS: BUSPIRONE HCL 5 MG TABLET PO SCH ×3 (08:49→20:43)
[2021-03-05 15:18] VITALS: BP 103/69
[2021-03-05 20:22] VITALS: BP 104/59
[2021-03-05 23:49] VITALS: BP 104/68
[2021-03-06 03:55] VITALS: BP 108/72
[2021-03-06] MEDS: INSULIN HUMULIN R 100 UNIT/ML 3ML SQ SCH ×4 (06:32→20:24)
[2021-03-06 07:33] VITALS: BP 132/73
[2021-03-06] MEDS: DOCUSATE SODIUM 100 MG CAP PO SCH ×2 (09:45→20:14)
[2021-03-06] MEDS: BUSPIRONE HCL 5 MG TABLET PO SCH ×3 (09:45→20:14)
[2021-03-06] MEDS: DEXAMETHASONE SOD PHOSPHATE 4 MG/ML 1ML VIAL IVP SCH (09:45)
[2021-03-06] MEDS: FAMOTIDINE 20MG TAB PO SCH ×2 (09:45→20:14)
[2021-03-06] MEDS: LACTULOSE 20 GM/30 ML UDCUP PO SCH (09:45)
[2021-03-06] MEDS: GUAIFENESIN 600 MG TABLET.ER PO SCH ×2 (09:46→20:14)
[2021-03-06] MEDS: FLUCONAZOLE 100 MG TAB PO SCH (09:46)
[2021-03-06] MEDS: ENOXAPARIN SODIUM 40 MG/0.4 ML SYRINGE SQ SCH ×2 (09:49→20:14)
[2021-03-06 11:51] VITALS: BP 124/79
[2021-03-06 15:38] VITALS: BP 115/70
[2021-03-06 19:58] VITALS: BP 125/75
[2021-03-06 23:37] VITALS: BP 96/65
[2021-03-07 03:54] VITALS: BP 110/71
[2021-03-07] MEDS: INSULIN HUMULIN R 100 UNIT/ML 3ML SQ SCH ×4 (05:41→20:53)
[2021-03-07 07:36] VITALS: BP 134/76
[2021-03-07] MEDS: DEXAMETHASONE SOD PHOSPHATE 4 MG/ML 1ML VIAL IVP SCH (08:24)
[2021-03-07] MEDS: GUAIFENESIN 600 MG TABLET.ER PO SCH ×2 (08:24→20:50)
[2021-03-07] MEDS: FAMOTIDINE 20MG TAB PO SCH ×2 (08:24→20:49)
[2021-03-07] MEDS: DOCUSATE SODIUM 100 MG CAP PO SCH ×2 (08:24→20:50)
[2021-03-07] MEDS: LACTULOSE 20 GM/30 ML UDCUP PO SCH (08:24)
[2021-03-07] MEDS: FLUCONAZOLE 100 MG TAB PO SCH (08:24)
[2021-03-07] MEDS: BUSPIRONE HCL 5 MG TABLET PO SCH ×3 (08:25→20:49)
[2021-03-07] MEDS: ENOXAPARIN SODIUM 40 MG/0.4 ML SYRINGE SQ SCH ×2 (08:25→20:50)
[2021-03-07 12:03] VITALS: BP 130/88
[2021-03-07 17:10] VITALS: BP 111/74
[2021-03-07 20:00] VITALS: BP 120/84
[2021-03-07 23:54] VITALS: BP 113/74
[2021-03-08 04:01] VITALS: BP 143/84
[2021-03-08 04:30] LABS: HEMATOCRIT 39.9 % (42-54); MEAN CORPUSCULAR HEMOGLOBIN 29.1 pg (27.0-33.0); MEAN CORPUSCULAR HGB CONC 33.1 g/dL (32.0-36.0); MEAN CORPUSCULAR VOLUME 87.9 fL (79-99); RED BLOOD CELL COUNT(AUTO) 4.54 MIL/uL (4.50-6.20); RED CELL DISTRIBUTION WIDTH 13.2 % (11.0-15.5); WHITE BLOOD COUNT (AUTO) 8.2 K/uL (4.8-10.8)
[2021-03-08 04:48] LABS: CARBON DIOXIDE 31 mmol/L (21-32); CHLORIDE 104 mmol/L (101-111); CREATININE 1.1 mg/dL (0.5-1.5); GLOMERULAR FILTR. RATE CALC 73 mL/min (>60); GLUCOSE,RANDOM 100 mg/dL (70-105); LACTATE DEHYDROGENASE 221 U/L (81-234); POTASSIUM 3.9 mmol/L (3.5-5.1); SODIUM SERUM 141 mmol/L (136-145); UREA NITROGEN, BLOOD 28 mg/dL (7-18)
[2021-03-08 04:51] LABS: CRP QUANTITATIVE < 2.00 mg/L (0.00-9.0)
[2021-03-08] MEDS: INSULIN HUMULIN R 100 UNIT/ML 3ML SQ SCH ×2 (05:47→11:30)
[2021-03-08 07:33] VITALS: BP 125/74
[2021-03-08] MEDS ORDERED: ENOXAPARIN SODIUM 40 MG/0.4 ML SYRINGE SQ SCH (09:00)
[2021-03-08] MEDS ORDERED: DEXAMETHASONE 4 MG TAB PO SCH (09:00)
[2021-03-08] MEDS: FLUCONAZOLE 100 MG TAB PO SCH (10:04)
[2021-03-08] MEDS: FAMOTIDINE 20MG TAB PO SCH (10:04)
[2021-03-08] MEDS: DOCUSATE SODIUM 100 MG CAP PO SCH (10:04)
[2021-03-08] MEDS: BUSPIRONE HCL 5 MG TABLET PO SCH (10:04)
[2021-03-08] MEDS: GUAIFENESIN 600 MG TABLET.ER PO SCH (10:04)
[2021-03-08] MEDS: LACTULOSE 20 GM/30 ML UDCUP PO SCH (10:05)
[2021-03-08 12:17] VITALS: BP 127/60
[2021-03-08] MEDS ORDERED: FAMO20TA8 PO (13:18)
[2021-03-08] MEDS ORDERED: APIX5TAB PO (13:18)
[2021-03-08] MEDS ORDERED: GUAI5SYR PO (13:18)
[2021-03-08] MEDS ORDERED: BUSP5TAB3 PO (13:18)
[2021-03-08] MEDS ORDERED: METO25TA6 PO (15:22)
[2021-03-08] MEDS ORDERED: METOPROLOL TARTRATE 25 MG TAB PO SCH (15:30)
== END 2021-03-08 15:59 | disposition home or self-care (01) | DRG 177 ==
LOC: EDH 11:10 → EDHIP 11:11 → 2AH 02-19 01:40
PROVIDERS: ADMIT Internal Medicine; ATTEND Internal Medicine
PROC: 5A0935A Assistance with Respiratory Ventilation, Less than 24 Consecutive Hours, High Flow/Velocity Cannula (ICD-10-PCS; 2021-02-17)
PROC: XW033H5 Introduction of Tocilizumab into Peripheral Vein, Percutaneous Approach, New Technology Group 5 (ICD-10-PCS; 2021-02-18)
PROC: 5A0935A Assistance with Respiratory Ventilation, Less than 24 Consecutive Hours, High Flow/Velocity Cannula (ICD-10-PCS; 2021-02-18)
PROC: 5A0935A Assistance with Respiratory Ventilation, Less than 24 Consecutive Hours, High Flow/Velocity Cannula (ICD-10-PCS; 2021-02-19)
PROC: 5A0935A Assistance with Respiratory Ventilation, Less than 24 Consecutive Hours, High Flow/Velocity Cannula (ICD-10-PCS; 2021-02-20)
PROC: XW0DXM6 Introduction of Baricitinib into Mouth and Pharynx, External Approach, New Technology Group 6 (ICD-10-PCS; 2021-02-21)
PROC: 5A0935A Assistance with Respiratory Ventilation, Less than 24 Consecutive Hours, High Flow/Velocity Cannula (ICD-10-PCS; 2021-02-21)
PROC: 5A0935A Assistance with Respiratory Ventilation, Less than 24 Consecutive Hours, High Flow/Velocity Cannula (ICD-10-PCS; 2021-02-22)
PROC: 5A09357 Assistance with Respiratory Ventilation, Less than 24 Consecutive Hours, Continuous Positive Airway Pressure (ICD-10-PCS; 2021-02-22)
PROC: XW033E5 Introduction of Remdesivir Anti-infective into Peripheral Vein, Percutaneous Approach, New Technology Group 5 (ICD-10-PCS; principal; 2021-02-23)
PROC: 5A0935A Assistance with Respiratory Ventilation, Less than 24 Consecutive Hours, High Flow/Velocity Cannula (ICD-10-PCS; 2021-02-23)
PROC: 5A0935A Assistance with Respiratory Ventilation, Less than 24 Consecutive Hours, High Flow/Velocity Cannula (ICD-10-PCS; 2021-02-24)
PROC: 5A0935A Assistance with Respiratory Ventilation, Less than 24 Consecutive Hours, High Flow/Velocity Cannula (ICD-10-PCS; 2021-02-25)
PROC: 5A09357 Assistance with Respiratory Ventilation, Less than 24 Consecutive Hours, Continuous Positive Airway Pressure (ICD-10-PCS; 2021-02-25)
PROC: 5A0935A Assistance with Respiratory Ventilation, Less than 24 Consecutive Hours, High Flow/Velocity Cannula (ICD-10-PCS; 2021-02-26)
PROC: 5A0935A Assistance with Respiratory Ventilation, Less than 24 Consecutive Hours, High Flow/Velocity Cannula (ICD-10-PCS; 2021-02-27)
PROC: 5A0935A Assistance with Respiratory Ventilation, Less than 24 Consecutive Hours, High Flow/Velocity Cannula (ICD-10-PCS; 2021-02-28)
PROC: 5A0935A Assistance with Respiratory Ventilation, Less than 24 Consecutive Hours, High Flow/Velocity Cannula (ICD-10-PCS; 2021-03-01)
PROC: 5A0935A Assistance with Respiratory Ventilation, Less than 24 Consecutive Hours, High Flow/Velocity Cannula (ICD-10-PCS; 2021-03-02)
DX: U07.1 COVID-19 (principal); J12.82 Pneumonia due to coronavirus disease 2019; J80 Acute respiratory distress syndrome; B37.0 Candidal stomatitis; D68.59 Other primary thrombophilia; E87.1 Hypo-osmolality and hyponatremia; E78.00 Pure hypercholesterolemia, unspecified; E66.9 Obesity, unspecified; K76.0 Fatty (change of) liver, not elsewhere classified; E11.65 Type 2 diabetes mellitus with hyperglycemia; E78.5 Hyperlipidemia, unspecified; I71.9 Aortic aneurysm of unspecified site, without rupture; I10 Essential (primary) hypertension; R13.10 Dysphagia, unspecified; R79.89 Other specified abnormal findings of blood chemistry; Z68.31 Body mass index [BMI] 31.0-31.9, adult; T38.0X5A Adverse effect of glucocorticoids and synthetic analogues, initial encounter; Y92.89 Other specified places as the place of occurrence of the external cause
CPT/HCPCS: 36415; 36600; 71045; 71250; 71275; 76705; 80048; 80053; 80076; 81001; 82248; 82435; 82550; 82728; 82803; 82947; 82948; 83036; 83605; 83615; 83735; 83874; 83880; 84100; 84132; 84145; 84295; 84484; 85018; 85025; 85027; 85378; 85651; 86140; 86606; 86612; 86635; 86698; 86701; 87040; 87071; 87088; 87205; 87390; 87635; 87804; 93005; 93970; 94660; 94760; C9803; G0378; J0696; J1100; J1450; J1644; J1650; J1815; J1940; J2920; J2930; J3490; J7030; J7050; J8540; Q9967

== ENCOUNTER 2021-03-11 01:30 | Observation (INO) | payer OTHER, SELFPAY ==
[2021-03-11] VITALS (12 sets, daily range): BP systolic 102–120; BP diastolic 69–85
[~2021-03-11] VITALS: Ht 188 cm; Wt 86.6 kg
[~2021-03-11 01:30] MED LIST: APIX5TAB PO; BUSP5TAB3 PO; FAMO20TA8 PO; GUAI5SYR PO; METO25TA6 PO
[2021-03-11 02:14] LABS: APPEARANCE,URINE Clear (CLEAR); BILIRUBIN,URINE Negative (NEGATIVE); COLOR,URINE Yellow (YELLOW); GLUCOSE, URINE (UA) Negative (NEGATIVE); KETONES,URINE Negative (NEGATIVE); LEUKOCYTE ESTERASE ,URINE Negative (NEGATIVE); NITRATE,URINE Negative (NEGATIVE); OCCULT BLOOD,URINE Negative (NEGATIVE); PH,URINE 5.5 (5.0-8.0); PROTEIN,URINE Negative (NEGATIVE); UROBILINOGEN,URINE 0.2 mg/dL (0.2-1.0)
[2021-03-11 02:21] LABS: AMPHET/METH SCREEN,URINE NEGATIVE (NEGATIVE); BARBITURATE SCREEN, URINE NEGATIVE (NEGATIVE); BENZODIAZEPINES SCREEN,URINE POSITIVE (NEGATIVE); CANNABINOID SCREEN,URINE NEGATIVE (NEGATIVE); COCAINE SCREEN,URINE NEGATIVE (NEGATIVE); OPIATE SCREEN,URINE NEGATIVE (NEGATIVE); PHENCYCLIDINE SCREEN,URINE NEGATIVE (NEGATIVE)
[2021-03-11] MEDS ORDERED: DILTIAZEM 25MG INJ IVP SCH (02:30)
[2021-03-11] MEDS ORDERED: DILTIAZEM 50MG VIAL IV ONE (02:34)
[2021-03-11 02:36] LABS: BASOPHILS % (AUTO) 0.3 % (0.0-5.0); EOSINOPHILS % (AUTO) 4.8 % (0.0-8.0); HEMATOCRIT 43.9 % (42-54); LYMPHOCYTES % (AUTO) 11.5 % (21.0-51.0); MEAN CORPUSCULAR HEMOGLOBIN 29.3 pg (27.0-33.0); MEAN CORPUSCULAR HGB CONC 33.9 g/dL (32.0-36.0); MEAN CORPUSCULAR VOLUME 86.4 fL (79-99); MONOCYTES % (AUTO) 13.1 % (3.0-13.0); NEUTROPHILS % (AUTO) 68.7 % (40.0-77.0); PLATELET COUNT (AUTO) 112 K/uL (130-400); RED BLOOD CELL COUNT(AUTO) 5.08 MIL/uL (4.50-6.20); RED CELL DISTRIBUTION WIDTH 13.2 % (11.0-15.5); WHITE BLOOD COUNT (AUTO) 6.4 K/uL (4.8-10.8)
[2021-03-11 02:43] LABS: POTASSIUM 3.7 mmol/L (3.5-5.1)
[2021-03-11 02:47] LABS: INR 1.07 (0.85-1.15); PROTHROMBIN TIME 11.6 SEC (9.6-11.6)
[2021-03-11 02:48] LABS: BILIRUBIN,TOTAL 0.4 mg/dL (0.2-1.0); TOTAL PROTEIN, SERUM 5.9 g/dL (6.0-8.3)
[2021-03-11 02:49] LABS: PARTIAL THROMBOPLASTIN TIME 23.1 SEC (26.3-35.5)
[2021-03-11 02:51] LABS: B-TYPE NATRIURETIC PEPTIDE 28 pg/mL (0-100)
[2021-03-11] MEDS ORDERED: DILTIAZEM 125 MG/25 ML INJ 125 MG in 0.9%NACL 100ML 100 ML IV SCH (03:00)
[2021-03-11] MEDS ORDERED: DILTIAZEM 125 MG/25 ML INJ IV ONE (03:09)
[2021-03-11] MEDS ORDERED: BUSP5TAB3 PO (03:15)
[2021-03-11] MEDS ORDERED: APIX5TAB PO (03:15)
[2021-03-11] MEDS ORDERED: 0.9% NACL 500ML IV.SOLN 500 ML IV SCH (04:00)
[2021-03-11] MEDS ORDERED: 0.9% NACL 500ML IV.SOLN 500 ML IV ONE (04:14)
[2021-03-11] MEDS ORDERED: MAGNESIUM 2GM PREMIX 50ML 50 ML IV ONE (05:00)
[2021-03-11 06:33] LABS: BASOPHILS % (AUTO) 0.6 % (0.0-5.0); EOSINOPHILS % (AUTO) 2.9 % (0.0-8.0); HEMATOCRIT 45.4 % (42-54); LYMPHOCYTES % (AUTO) 12.2 % (21.0-51.0); MEAN CORPUSCULAR HEMOGLOBIN 29.4 pg (27.0-33.0); MEAN CORPUSCULAR HGB CONC 33.5 g/dL (32.0-36.0); MEAN CORPUSCULAR VOLUME 87.8 fL (79-99); MONOCYTES % (AUTO) 11.7 % (3.0-13.0); NEUTROPHILS % (AUTO) 70.8 % (40.0-77.0); PLATELET COUNT (AUTO) 107 K/uL (130-400); RED BLOOD CELL COUNT(AUTO) 5.17 MIL/uL (4.50-6.20); RED CELL DISTRIBUTION WIDTH 13.3 % (11.0-15.5); WHITE BLOOD COUNT (AUTO) 7.9 K/uL (4.8-10.8)
[2021-03-11 06:46] LABS: ALBUMIN 3.1 g/dL (3.5-5.0); BILIRUBIN,TOTAL 0.6 mg/dL (0.2-1.0); CREATININE 1.1 mg/dL (0.5-1.5); POTASSIUM 4.5 mmol/L (3.5-5.1)
[2021-03-11] MEDS ORDERED: ENOXAPARIN SODIUM 100 MG/1 ML SQ SCH (09:00)
[2021-03-11 09:55] LABS: CREATINE KINASE, TOTAL 38 U/L (21-232); MYOGLOBIN 34 ng/mL (10-92); TROPONIN I < 0.04 ng/mL (0.00-0.06)
[2021-03-11] MEDS ORDERED: DILTIAZEM 180MG SR CAP PO SCH (12:30)
[2021-03-11] MEDS ORDERED: DILTIAZEM 120MG SR CAP PO ONE (12:52)
[2021-03-11 18:39] LABS: CREATINE KINASE, TOTAL 30 U/L (21-232); MYOGLOBIN 24 ng/mL (10-92); TROPONIN I < 0.04 ng/mL (0.00-0.06)
[2021-03-12] VITALS (7 sets, daily range): BP systolic 108–127; BP diastolic 69–91
[2021-03-12] MEDS ORDERED: DILTIAZEM 120MG SR CAP PO SCH (09:00)
== END 2021-03-12 18:30 | disposition home or self-care (01) ==
LOC: EDH 01:30 → INTOOBSV 01:31 → EDHIP 01:31
PROVIDERS: ADMIT Internal Medicine; ATTEND Internal Medicine
DX: I47.1 Supraventricular tachycardia (principal); Z20.822 Contact with and (suspected) exposure to COVID-19; I48.91 Unspecified atrial fibrillation; F41.9 Anxiety disorder, unspecified; Z79.01 Long term (current) use of anticoagulants
CPT/HCPCS: 36415; 71045; 71250; 80053 ×2; 80305; 81003; 82550 ×3; 83874 ×2; 83880; 84484 ×3; 85025 ×2; 85610; 85730; 87635; 93005 ×2; 93306; 93356; 96365; 96366; 96368; 96376; 99291; C9803; G0378 ×37; J3475; J3490 ×3; J7040